=== PATIENT | female | born 1980 | race Caucasian/White ===

== ENCOUNTER 2022-03-27 17:18 | Emergency (ER) | payer MEDICAID, SELFPAY ==
--- NOTE | ~2022-03-27 | CT_ITS ---
CT HEAD WITHOUT CONTRAST CLINICAL HISTORY: Headache TECHNIQUE: CT of the brain was performed from the skull base through the vertex using a routine non-contrast protocol. All CT exams at this location are performed using dose optimization techniques as appropriate to a performed exam including at least one of the following: * Automated exposure control * Adjustment of the mA and/or kV according to patient size (this includes techniques or standardized protocols for targeted exams where dose is matched to indication / reason for exam; i/e/ extremities or head) * Use of iterative reconstructive technique DLP: 630 mGy-cm COMPARISON: None. RESULTS: There is no evidence of acute intracranial hemorrhage, acute large vessel infarct, midline shift or mass effect. The tate-white differentiation is preserved. The ventricles and sulci are within normal limits in size and configuration. There is no evidence of hydrocephalus. There are no extraaxial collections. Osseous structures are intact. Paranasal sinuses and mastoid air cells are well aerated. CT/CT head/brain wo IV con IMPRESSION: Unremarkable non-contrast CT of the brain.
--- NOTE | ~2022-03-27 | XR_ITS ---
EXAMINATION: XR CHEST CLINICAL INFORMATION: Chest pain COMPARISON: None TECHNIQUE: Frontal view of the chest was obtained. FINDINGS: Minimal streaky linear probable subsegmental atelectasis in the peripheral left lung base. No airspace consolidation. No pleural effusion or pneumothorax. Normal cardiomediastinal silhouette and pulmonary vascularity. No evidence pulmonary edema. No acute osseous injury identified. XR/XR chest 1V IMPRESSION: No acute pulmonary process.
[2022-03-27 17:26] VITALS: BP 100/64; BP 102/71; PULSE 68; PULSE 74; RESP 18; TEMP 37.7; O2SAT 98; O2SAT 99; BMI 24.2
--- NOTE | 2022-03-27 18:15 | ECG_ITS ---
Test Reason : HYPOTENSION Blood Pressure : / mmHG Vent. Rate : 069 BPM Atrial Rate : 069 BPM P-R Int : 190 ms QRS Dur : 100 ms QT Int : 426 ms P-R-T Axes : 040 040 040 degrees QTc Int : 456 ms Normal sinus rhythm Normal ECG No previous ECGs available Referred By: Spencer Matos Electronically Signed By:MANAN MAX MD
--- NOTE | 2022-03-27 18:16 | ED.GENADULT ---
HPI - General Adult General Chief complaint: Weakness Stated complaint: WEAKNESS Time Seen by Provider: 03/27/22 17:53 Source: patient and EMS Mode of arrival: EMS Limitations: other (patient not cooperative poor historian ) History of Present Illness HPI narrative: 42-year-old female presenting to the emergency department via ambulance from [facility] on a section 21 , according to EMS patient is here because [facility]a Fine got 1 low blood pressure reading while she was there and they forced her to come into the emergency department. Patient tells me she does understand why she is here. When I ask her if she has any medical complaints she tells me her head hurts she feels ?foggy she tells me she is having tingling throughout her entire body. She tells me that her legs have been swollen for months, she tells me both of them. Patient also reporting chest pain however unwilling to specify where it hurts or what makes it better or worse. Patient tells me all my questions are annoying her. She tells me she wants to go back to [facility] not get any medical treatment. Patient with a erratic behavior, unpredictable mood and affect. Related Data Home Medications Medication Instructions Recorded Confirmed amitriptyline 50 mg tablet 50 mg PO BEDTIME 03/27/22 03/27/22 baclofen 10 mg tablet 10 mg PO BID 03/27/22 03/27/22 cholecalciferol (vitamin D3) 25 25 mcg PO DAILY 03/27/22 03/27/22 mcg (1,000 unit) tablet diphenhydramine HCl 50 mg capsule 50 mg PO BEDTIME 03/27/22 03/27/22 fenofibrate micronized 134 mg 134 mg PO BEDTIME 03/27/22 03/27/22 capsule furosemide 20 mg tablet 20 mg PO DAILY 03/27/22 03/27/22 gabapentin 300 mg capsule 300 mg PO TID 03/27/22 03/27/22 lactulose 20 gram/30 mL oral 20 g PO TID 03/27/22 03/27/22 solution lidocaine 5 % topical patch 1 patch topical DAILY 03/27/22 03/27/22 (Lidoderm) losartan 50 mg tablet 50 mg PO DAILY 03/27/22 03/27/22 naproxen 250 mg tablet 250 mg PO BID 03/27/22 03/27/22 nicotine 14 mg/24 hr daily 1 patch transdermal DAILY 03/27/22 03/27/22 transdermal patch propranolol 10 mg tablet 10 mg PO TID 03/27/22 03/27/22 quetiapine 100 mg tablet 100 mg PO BID@1300,1700 03/27/22 03/27/22 quetiapine 100 mg tablet (Seroquel) 200 mg PO BEDTIME 03/27/22 03/27/22 valacyclovir 1 gram tablet 1,000 mg PO DAILY 03/27/22 03/27/22 verapamil 360 mg 24 hr 360 mg PO DAILY 03/27/22 03/27/22 capsule,extended release Allergies Allergy/AdvReac Type Severity Reaction Status Date / Time adhesive tape Allergy Unknown Verified 03/27/22 17:37 lisinopril Allergy Cough Verified 03/27/22 17:38 morphine Allergy Vomiting Verified 03/27/22 17:37 Penicillins [PCN] Allergy Rash Verified 03/27/22 17:37 Review of Systems Review of Systems: Yes Other (Patient refusing to answer all my questions ) [facility] Past Medical History Attestation statement: The following information was validated with the patient. Source: old records reviewed and nursing notes reviewed Social History Social History Alcohol intake: former Smoked in Last 30 Days: Yes Use of substances other than those prescribed or required for medical reasons: No Substance Use Type: Crack/Cocaine Any prior treatment program specific to substance use: Yes Advance Directives: No Advance Directives Information Provided: No Physical Exam ED Vital Signs: Vital Signs - 24 hr 03/27/22 17:26 03/27/22 18:37 03/27/22 19:47 Temperature 99.9 F 97.4 F 97.9 F Pulse Rate 68 70 68 Respiratory Rate 18 16 16 Blood Pressure 102/71 118/85 123/83 Pulse Oximetry 99 100 97 Oxygen Delivery Method Room Air Room Air Room Air 03/27/22 21:11 Temperature 97.8 F Pulse Rate 70 Respiratory Rate 16 Blood Pressure 126/92 H Pulse Oximetry 100 Oxygen Delivery Method Room Air BMI result Body Mass Index 24.2 vss Appearance: Alert.? Oriented X3.? No acute distress.? Patient with erratic behavior and unpredictable mood/affect. Head: Normocephalic, atraumatic, no step-offs or deformities Eyes: Pupils equal, round and reactive to light.? ENT: Pharynx normal.? Neck: Normal inspection.? Neck supple.? CVS: Normal heart rate and rhythm.? Pulses normal.? Respiratory: No respiratory distress.? Breath sounds normal.? Abdomen: Soft and nontender.? Skin: Skin warm and dry.? Normal skin color.? Normal skin turgor.? Extremities: No lower extremity edema b/l.? No calf ttp, negative chris. 5/5 strength to bilateral upper and lower extremities Neuro: Oriented X 3.? No motor deficit.? No sensory deficit. CN 2-12 intact . Patient ambulating with steady gait normal coordination. Normal [id number]. Course Reevaluation(s) Reevaluation #1: Patient's CBC within normal limits. Chemistry with no acute findings requiring intervention. Normal troponin, EKG nonischemic unlikely ACS. BNP within normal limits, unlikely CHF. D-dimer negative. Unlikely PE or DVT. Patient negative for COVID however flu/COVID/RSV pending. Chest x-ray with no acute pulmonary process noted. UA without infection. Pending CT of the head. Time: 20:37 Reevaluation #2: Viral panel negative. Head CT negative. Patient given her home medications. At this time patient without complaints. [facility] Educated patient on diagnosis and treatment plan, answered all question, patient verbalizes understanding. At this time patient will be discharged home, advised to return with new or worsening symptoms. Educated on worrisome signs and symptoms and when to return. At this time I feel comfortable discharge home. Time: 22:42 Medications Administered Generic Name Dose Route Start Last Admin Trade Name Raoul PRN Reason Stop Dose Admin Amitriptyline HCl 50 mg 03/28/22 21:00 03/27/22 22:30 Amitriptyline Hcl 50 Mg Tablet PO 50 mg BEDTIME AYO Administration Baclofen 10 mg 03/28/22 09:00 03/27/22 22:31 Baclofen 10 Mg Tablet PO 10 mg BID AYO Administration Diphenhydramine HCl 50 mg 03/28/22 21:00 03/27/22 22:31 Diphenhydramine Hcl 25 Mg Capsule PO 50 mg BEDTIME AYO Administration Fenofibrate 134 mg 03/28/22 21:00 12/28/22 22:29 Fenofibrate,Micronized 134 Mg Capsule PO 134 mg BEDTIME AYO Administration Gabapentin 300 mg 03/28/22 09:00 03/27/22 22:30 Gabapentin 300 Mg Capsule PO 300 mg TID AYO Administration Lactulose 20 gm 03/28/22 09:00 03/27/22 22:30 Lactulose 20 Gm/30 Ml Solution PO 20 gm TID AYO Administration Naproxen 250 mg 03/28/22 09:00 03/27/22 22:30 Naproxen 250 Mg Tablet PO 250 mg BID AYO Administration Propranolol HCl 10 mg 03/28/22 09:00 03/27/22 22:30 Propranolol Hcl 10 Mg Tablet PO 10 mg TID AYO Administration Protocol Quetiapine Fumarate 200 mg 03/28/22 21:00 03/27/22 22:30 Quetiapine Fumarate 200 Mg Tablet PO 200 mg BEDTIME AYO Administration Discontinued Medications Generic Name Dose Route Start Last Admin Trade Name Freq PRN Reason Stop Dose Admin Ketorolac Tromethamine 30 mg 03/27/22 18:21 03/27/22 18:58 Ketorolac Tromethamine 30 Mg/Ml Vial IM 03/27/22 18:22 30 mg ONCE ONE Administration Medical Decision Making Medical Decision Making [facility] Narrative: 1805 42-year-old female presents on a Section 21 for [facility] complaining of chest pain, lower extremity swelling, poor historian. Unwilling to participate in history, physical exam, review of systems. Physical examination benign. Neuro nonfocal. Patient ambulating with steady gait normal coordination. GCS of 15, NIH stroke scale 0. Plan at this time medical clearance and discharged back to [facility]. Patient's blood pressure here soft however patient tells me her blood pressure is always low. Lab Data Result Diagrams: 03/27/22 18:57 03/27/22 18:58 Labs: Lab Results 03/27/22 03/27/22 03/27/22 Range/Units 18:57 18:57 18:57 WBC 8.1 (4.8-10.8) X10*3/uL RBC 3.62 L (4.20-5.50) X10*6/uL Hgb 11.4 L (12.0-16.0) g/dl Hct 33.9 L (37.0-47.0) % MCV 93.6 (80.0-98.0) fL MCH 31.5 (27.0-33.0) pg MCHC 33.6 (31.0-35.0) g/dl RDW 12.3 (11.0-16.0) % Plt Count 300 (160-400) X10*3/uL MPV 9.9 (9.4-12.3) fL Immature Gran % (Auto) 0.4 (0.0-0.4) % Neut % (Auto) 45.2 (45-73) % Lymph % (Auto) 37.6 (20-40) % [place] % (Auto) 11.3 H (2-11) % Eos % (Auto) 4.3 H (0-4) % Baso % (Auto) 1.2 (0-2) % Lymph # (Auto) 3.1 (1.2-4.9) X10*3/uL [place] # (Auto) 0.9 (0.1-1.2) X10*3/uL Eos # (Auto) 0.4 (0.0-0.4) X10*3/uL Baso # (Auto) 0.1 (0.0-0.2) X10*3/uL Abs Immat Gran (auto) 0.03 (0.00-0.03) X10*3/uL Absolute Neuts (auto) 3.7 (2.0-8.3) x10*3/uL Absolute Nucleated RBC 0.000 (0.0-0.012) X10*3/uL Nucleated RBC % (auto) 0.0 (0.0-0.2) /100WBC D-Dimer High Sensitivty 207 NG/ML Sodium (135-145) mmol/L Potassium (3.3-5.1) mmol/L Chloride (96-108) mmol/L Carbon Dioxide (22-29) mmol/L Anion Gap (12-20) BUN (9-16) mg/dL Creatinine (0.5-1.4) mg/dL Estim Creat Clear Calc Estimated GFR Random Glucose (60-115) mg/dL Calcium (8.4-10.2) mg/dL Magnesium (1.6-2.6) mg/dL Total Bilirubin (0.0-1.0) mg/dL AST (5-31) U/L ALT (0-31) U/L Alkaline Phosphatase (39-117) U/L Troponin I High Sens (<3.5-17.0) ng/L B-Natriuretic Peptide 38 (<100) pg/mL Total Protein (6.5-8.0) g/dL Albumin (3.5-5.0) g/dL Urine Color Urine Appearance Urine pH (5.0-9.0) Ur Specific [place] (1.005-1.025) Urine Protein (Neg-Trace) mg/dL Urine Glucose (UA) (Negative) mg/dL Urine Ketones (Negative) mg/dL Urine Blood (Negative) Urine Nitrite (Negative) Ur Leukocyte Esterase (Negative) COVID-19 ([facility]) (Negative) COVID-19 Clin Com Influenza Type A (PCR) (Negative) Influenza Type B (PCR) (Negative) RSV RNA Qual (PCR) (Negative) SARS-CoV-2 RNA (RT-PCR) (Negative) 03/27/22 03/27/22 03/27/22 Range/Units 18:57 18:57 18:57 WBC (4.8-10.8) X10*3/uL RBC (4.20-5.50) X10*6/uL Hgb (12.0-16.0) g/dl Hct (37.0-47.0) % MCV (80.0-98.0) fL MCH (27.0-33.0) pg MCHC (31.0-35.0) g/dl RDW (11.0-16.0) % Plt Count (160-400) X10*3/uL MPV (9.4-12.3) fL Immature Gran % (Auto) (0.0-0.4) % Neut % (Auto) (45-73) % Lymph % (Auto) (20-40) % [place] % (Auto) (2-11) % Eos % (Auto) (0-4) % Baso % (Auto) (0-2) % Lymph # (Auto) (1.2-4.9) X10*3/uL [place] # (Auto) (0.1-1.2) X10*3/uL Eos # (Auto) (0.0-0.4) X10*3/uL Baso # (Auto) (0.0-0.2) X10*3/uL Abs Immat Gran (auto) (0.00-0.03) X10*3/uL Absolute Neuts (auto) (2.0-8.3) x10*3/uL Absolute Nucleated RBC (0.0-0.012) X10*3/uL Nucleated RBC % (auto) (0.0-0.2) /100WBC D-Dimer High Sensitivty NG/ML Sodium (135-145) mmol/L Potassium (3.3-5.1) mmol/L Chloride (96-108) mmol/L Carbon Dioxide (22-29) mmol/L Anion Gap (12-20) BUN (9-16) mg/dL Creatinine (0.5-1.4) mg/dL Estim Creat Clear Calc Estimated GFR Random Glucose (60-115) mg/dL Calcium (8.4-10.2) mg/dL Magnesium (1.6-2.6) mg/dL Total Bilirubin (0.0-1.0) mg/dL AST (5-31) U/L ALT (0-31) U/L Alkaline Phosphatase (39-117) U/L Troponin I High Sens < 3.5 (<3.5-17.0) ng/L B-Natriuretic Peptide (<100) pg/mL Total Protein (6.5-8.0) g/dL Albumin (3.5-5.0) g/dL Urine Color Urine Appearance Urine pH (5.0-9.0) Ur Specific [place] (1.005-1.025) Urine Protein (Neg-Trace) mg/dL Urine Glucose (UA) (Negative) mg/dL Urine Ketones (Negative) mg/dL Urine Blood (Negative) Urine Nitrite (Negative) Ur Leukocyte Esterase (Negative) COVID-19 ([facility]) Negative (Negative) COVID-19 Clin Com See Note Influenza Type A (PCR) NEGATIVE (Negative) Influenza Type B (PCR) NEGATIVE (Negative) RSV RNA Qual (PCR) NEGATIVE (Negative) SARS-CoV-2 RNA (RT-PCR) NEGATIVE (Negative) 03/27/22 03/27/22 03/27/22 Range/Units 18:58 19:49 21:21 WBC (4.8-10.8) X10*3/uL RBC (4.20-5.50) X10*6/uL Hgb (12.0-16.0) g/dl Hct (37.0-47.0) % MCV (80.0-98.0) fL MCH (27.0-33.0) pg MCHC (31.0-35.0) g/dl RDW (11.0-16.0) % Plt Count (160-400) X10*3/uL MPV (9.4-12.3) fL Immature Gran % (Auto) (0.0-0.4) % Neut % (Auto) (45-73) % Lymph % (Auto) (20-40) % [place] % (Auto) (2-11) % Eos % (Auto) (0-4) % Baso % (Auto) (0-2) % Lymph # (Auto) (1.2-4.9) X10*3/uL [place] # (Auto) (0.1-1.2) X10*3/uL Eos # (Auto) (0.0-0.4) X10*3/uL Baso # (Auto) (0.0-0.2) X10*3/uL Abs Immat Gran (auto) (0.00-0.03) X10*3/uL Absolute Neuts (auto) (2.0-8.3) x10*3/uL Absolute Nucleated RBC (0.0-0.012) X10*3/uL Nucleated RBC % (auto) (0.0-0.2) /100WBC D-Dimer High Sensitivty NG/ML Sodium 139 (135-145) mmol/L Potassium 3.9 (3.3-5.1) mmol/L Chloride 106 (96-108) mmol/L Carbon Dioxide 25 (22-29) mmol/L Anion Gap 12 (12-20) BUN 7 L (9-16) mg/dL Creatinine 0.83 (0.5-1.4) mg/dL Estim Creat Clear Calc 80.9 Estimated GFR > 60 Random Glucose 89 (60-115) mg/dL Calcium 9.3 (8.4-10.2) mg/dL Magnesium 1.8 (1.6-2.6) mg/dL Total Bilirubin 0.2 (0.0-1.0) mg/dL AST 12 (5-31) U/L ALT 14 (0-31) U/L Alkaline Phosphatase 61 (39-117) U/L Troponin I High Sens < 3.5 (<3.5-17.0) ng/L B-Natriuretic Peptide (<100) pg/mL Total Protein 6.2 L (6.5-8.0) g/dL Albumin 3.9 (3.5-5.0) g/dL Urine Color Yellow Urine Appearance Clear Urine pH 7.5 (5.0-9.0) Ur Specific [place] <= 1.005 (1.005-1.025) Urine Protein Negative (Neg-Trace) mg/dL Urine Glucose (UA) Negative (Negative) mg/dL Urine Ketones Negative (Negative) mg/dL Urine Blood Negative (Negative) Urine Nitrite Negative (Negative) Ur Leukocyte Esterase Negative (Negative) COVID-19 ([facility]) (Negative) COVID-19 Clin Com Influenza Type A (PCR) (Negative) Influenza Type B (PCR) (Negative) RSV RNA Qual (PCR) (Negative) SARS-CoV-2 RNA (RT-PCR) (Negative) Critical Care Time Critical Care Time Critical Care Time: No Discharge Plan Discharge Clinical Impression: Headache, Chest pain Patient Disposition: Xfer Other Transfer Details: Back to [facility] on a 21 Take your medications as prescribed. If you were prescribed antibiotics today, it is important that you take your medication to their entirety, do not skip any doses, do not finish them early. Follow-up with your primary care provider this week. Return to the emergency department with new or worsening symptoms. Such as fevers, chills, chest pain, shortness of breath, nausea, vomiting, dizziness, headache, vision changes, lethargy In case of emergency call 911 Patient was given her night medications here. Instructions: Chest Pain (ED), General Headache (ED) Additional Instructions: Take your medications as prescribed. If you were prescribed antibiotics today, it is important that you take your medication to their entirety, do not skip any doses, do not finish them early. Follow-up with your primary care provider this week. Return to the emergency department with new or worsening symptoms. Such as fevers, chills, chest pain, shortness of breath, nausea, vomiting, dizziness, headache, vision changes, lethargy In case of emergency call 911 You can take ibuprofen every 6 hours, Tylenol every 4 as needed for headache, fevers, chills, pain. Prescriptions: No Action baclofen 10 mg Tablet 10 mg PO BID cholecalciferol (vitamin D3) 25 mcg (1,000 unit) Tablet 25 mcg PO DAILY losartan 50 mg Tablet 50 mg PO DAILY nicotine [Nicoderm] 14 mg/24 hr Patch 24 Hour 1 patch TRANSDERMAL DAILY diphenhydramine HCl [Benadryl] 50 mg Capsule 50 mg PO BEDTIME verapamil 360 mg Capsule,Ext Rel. Pellets 24 Hr 360 mg PO DAILY valacyclovir 1 gram Tablet 1,000 mg PO DAILY naproxen 250 mg Tablet 250 mg PO BID quetiapine 100 mg Tablet 100 mg PO BID@1300,1700 quetiapine [Seroquel] 100 mg Tablet 200 mg PO BEDTIME amitriptyline 50 mg Tablet 50 mg PO BEDTIME fenofibrate micronized 134 mg Capsule 134 mg PO BEDTIME propranolol 10 mg Tablet 10 mg PO TID lidocaine [Lidoderm] 5 % Adhesive Patch,Medicated 1 patch TOPICAL DAILY Rx Instructions: leave on most painful area for up to 12 hrs gabapentin 300 mg Capsule 300 mg PO TID furosemide 20 mg Tablet 20 mg PO DAILY lactulose 20 gram/30 mL Solution 20 g PO TID Referrals: [facility] Cardiovascular Services [Provider Group] - 2 weeks Physician,None [Primary Care Provider] - 2 days
[2022-03-27 18:37] VITALS: BP 118/85; PULSE 70; RESP 16; TEMP 36.3; O2SAT 100
[2022-03-27] MEDS: Ketorolac Tromethamine 30 MG/ML VIAL IM (18:58)
[2022-03-27 19:02] LABS: MANUAL DIFF FLAG NO
[2022-03-27 19:03] LABS: Basophils Absolute Auto 0.1 X10*3/uL (0.0-0.2); Basophils Percent Auto 1.2 % (0-2); Eosinophils Absolute Auto 0.4 X10*3/uL (0.0-0.4); Eosinophils Percent Auto 4.3 % (0-4); Hematocrit 33.9 % (37.0-47.0); Hemoglobin 11.4 g/dl (12.0-16.0); Imm Gran Abs Auto 0.03 X10*3/uL (0.00-0.03); Imm Gran Pct Auto 0.4 % (0.0-0.4); Lymphocytes Absolute Auto 3.1 X10*3/uL (1.2-4.9); Lymphocytes Percent Auto 37.6 % (20-40); Mean Corpuscular HGB Conc 33.6 g/dl (31.0-35.0); Mean Corpuscular Hemoglobin 31.5 pg (27.0-33.0); Mean Corpuscular Volume 93.6 fL (80.0-98.0); Mean Platelet Volume 9.9 fL (9.4-12.3); Monocytes Absolute Auto 0.9 X10*3/uL (0.1-1.2); Monocytes Percent Auto 11.3 % (2-11); Neutrophils Absolute Auto 3.7 x10*3/uL (2.0-8.3); Neutrophils Percent Auto 45.2 % (45-73); Platelet Count 300 X10*3/uL (160-400); Red Blood Count 3.62 X10*6/uL (4.20-5.50); Red Cell Distribution Width 12.3 % (11.0-16.0); White Blood Count 8.1 X10*3/uL (4.8-10.8)
[2022-03-27 19:11] LABS: D Dimer High Sensitivity 207 NG/ML
[2022-03-27 19:17] LABS: COVID-19 Test Negative (Negative); IDNOW Serial# 16C4AD1C
[2022-03-27 19:27] LABS: Alanine Aminotransferase 14 U/L (0-31); Albumin Level 3.9 g/dL (3.5-5.0); Alkaline Phosphatase 61 U/L (39-117); Anion Gap 12 (12-20); Aspartate Amino Transferase 12 U/L (5-31); Bilirubin Total 0.2 mg/dL (0.0-1.0); Blood Urea Nitrogen 7 mg/dL (9-16); Calcium 9.3 mg/dL (8.4-10.2); Carbon Dioxide 25 mmol/L (22-29); Chloride 106 mmol/L (96-108); Creatinine Clr Calc Pharmacy 80.9; Estimated Glomerular Filt Rate > 60; Glucose Random 89 mg/dL (60-115); Magnesium 1.8 mg/dL (1.6-2.6); Potassium 3.9 mmol/L (3.3-5.1); Sodium 139 mmol/L (135-145); Total Protein 6.2 g/dL (6.5-8.0)
[2022-03-27 19:34] LABS: B Type Natriuretic Peptide 38 pg/mL (<100)
[2022-03-27 19:39] LABS: Troponin-I High Sensitivity < 3.5 ng/L (<3.5-17.0)
[2022-03-27 19:44] LABS: Influenza A PCR NEGATIVE (Negative); Influenza B PCR NEGATIVE (Negative); Resp Syncy Virus RNA Qual PCR NEGATIVE (Negative); SARS COV2 PCR INHOUSE NEGATIVE (Negative)
[2022-03-27 19:47] VITALS: BP 123/83; PULSE 68; RESP 16; TEMP 36.6; O2SAT 97
--- NOTE | 2022-03-27 19:49 | MHC.EDTECH ---
pt got change lead into hospital attire by this pct, warm blanket given .
[2022-03-27 20:21] LABS: Appearance Urine Clear; Color Urine Yellow; Glucose Urine UA Negative (Negative); Leukocyte Esterase Urine Negative (Negative); Nitrite Urine Negative (Negative); PH 7.5 (5.0-9.0); Specific Gravity - Urine <= 1.005 (1.005-1.025); Urine Blood Negative (Negative); Urine Ketones Negative (Negative); Urine Protein Negative (Neg-Trace)
[2022-03-27 21:11] VITALS: BP 126/92; PULSE 70; RESP 16; TEMP 36.6; O2SAT 100
[2022-03-27 21:48] LABS: Troponin-I High Sensitivity < 3.5 ng/L (<3.5-17.0)
[2022-03-27] MEDS: Fenofibrate,Micronized 134 MG CAPSULE PO (22:29)
[2022-03-27] MEDS: Lactulose 20 GM/30 ML SOLUTION PO (22:30)
[2022-03-27] MEDS: Propranolol HCL 10 MG TABLET PO (22:30)
[2022-03-27] MEDS: Gabapentin 300 MG CAPSULE PO (22:30)
[2022-03-27] MEDS: QUEtiapine Fumarate 200 MG TABLET PO (22:30)
[2022-03-27] MEDS: NaPROXEN 250 MG TABLET PO (22:30)
[2022-03-27] MEDS: Amitriptyline HCl 50 MG TABLET PO (22:30)
[2022-03-27] MEDS: diphenhydrAMINE HCL 25 MG CAPSULE 50 MG PO (22:31)
[2022-03-27] MEDS: Baclofen 10 MG TABLET PO (22:31)
--- NOTE | 2022-03-27 22:42 | MHC.EDTECH ---
Prasanth called at 2242 for a bls transfer back to [facility] per Mohini Barone aware
--- NOTE | 2022-03-27 22:56 | PC.NURSE ---
Called and gave report to Gerard at [facility] ct scan negative, blood pressures wnl the entire time she was here. Ambulance on its way to pick her up.
== END 2022-03-27 23:44 | disposition other institution (70) ==
PROVIDERS: Physician Assistant; Emergency Provider Emergency Medicine
DX: R07.89 Other chest pain (principal); R06.02 Shortness of breath; R51.9 Headache, unspecified; Z20.822 Contact with and (suspected) exposure to COVID-19; Z79.899 Other long term (current) drug therapy
CPT/HCPCS: 0241U; 36415; 70450; 71045; 80053; 81003; 83735; 83880; 84484; 85025; 85379; 87635; 93005; 99285; J1885

== ENCOUNTER 2022-03-30 23:27 | Emergency (ER) | payer MEDICAID, SELFPAY ==
--- NOTE | ~2022-03-30 | CT_ITS ---
EXAMINATION: CT HEAD WITHOUT CONTRAST CLINICAL INFORMATION: New onset seizure. Fall. COMPARISON: 03/27/2022. TECHNIQUE: Contiguous axial imaging was performed from the skull base to vertex without intravenous administration of contrast. This CT examination was performed using dose optimization techniques as appropriate, variously including the following: *Automated exposure control *Adjustment of mA and/or kV according to patient size (this includes techniques or standardized protocols for targeted exams where dose is matched to indication/reason for exam; i.e. extremities or head) *Use of iterative reconstruction technique DLP: 584 mGy-cm FINDINGS: There is no evidence of acute intracranial hemorrhage or territorial infarction. No abnormal mass effect or midline shift is seen. [place] to white matter differentiation is well preserved. No extra-axial fluid collections are identified. No hydrocephalus. No significant volume loss. Stable hyperdense focus in the left parietal subcortical white matter No acute osseous or soft tissue abnormality. The mastoid air cells and visualized portions of the paranasal sinuses are well aerated. CT/CT head/brain wo IV con IMPRESSION: * No acute intracranial pathology. * Stable hypodense focus in the left parietal subcortical white matter. Given the unchanged size and morphology from the prior examination, favor mineralization. There are myriad etiologies for brain parenchymal calcification. With a history of new onset seizures, however, MRI brain without and with contrast is indicated for further evaluation.
[2022-03-30 23:49] VITALS: BP 157/105; PULSE 101; RESP 16; TEMP 36.8; O2SAT 97; BMI 23.3
--- NOTE | 2022-03-30 23:53 | ED_ITS ---
HPI - Seizure General Chief Complaint: Seizure Stated Complaint: SZ,POST ICTAL @ [facility] VERSED GIVEN Time Seen by Provider: 03/30/22 23:44 Source: EMS and RN notes reviewed Mode of arrival: EMS Limitations: altered mental status History of Present Illness HPI Narrative: Patient is 42 years old with history of recurrent MDD, substance induced mood disorder history of cocaine abuse and SI and anxiety just admitted to [facility] psych for SI on 03/18 was seen here on 03/27 for been feeling foggy CT scan of the head and lab workup was negative her blood pressure medication losartan and verapamil was on hold because of her blood pressure on the lower side SBP in 110 range since discharge patient on 03/27 from the ER here a blood pressure on the higher side on arrival blood pressure today was 157/105. Prior to arrival patient went to the nursing station asking for medication to sleep a nd then while the staff talking to her today she became unresponsive with eyes up rolling leaning forward slumped down with having seizure-like activity lasted for 5-6 minutes post seizure-like activity patient was agitated completed with chart patient never had seizure. Patient was given 2 mg of Versed prior to arrival by EMS Related Data Home Medications Medication Instructions Recorded Confirmed amitriptyline 50 mg tablet 50 mg PO BEDTIME 03/27/22 03/27/22 baclofen 10 mg tablet 10 mg PO BID 03/27/22 03/27/22 cholecalciferol (vitamin D3) 25 25 mcg PO DAILY 03/27/22 03/27/22 mcg (1,000 unit) tablet diphenhydramine HCl 50 mg capsule 50 mg PO BEDTIME 03/27/22 03/27/22 fenofibrate micronized 134 mg 134 mg PO BEDTIME 03/27/22 03/27/22 capsule furosemide 20 mg tablet 20 mg PO DAILY 03/27/22 03/27/22 gabapentin 300 mg capsule 300 mg PO TID 03/27/22 03/27/22 lactulose 20 gram/30 mL oral 20 g PO TID 03/27/22 03/27/22 solution lidocaine 5 % topical patch 1 patch topical DAILY 03/27/22 03/27/22 (Lidoderm) losartan 50 mg tablet 50 mg PO DAILY 03/27/22 03/27/22 naproxen 250 mg tablet 250 mg PO BID 03/27/22 03/27/22 nicotine 14 mg/24 hr daily 1 patch transdermal DAILY 03/27/22 03/27/22 transdermal patch propranolol 10 mg tablet 10 mg PO TID 03/27/22 03/27/22 quetiapine 100 mg tablet 100 mg PO BID@1300,1700 03/27/22 03/27/22 quetiapine 100 mg tablet (Seroquel) 200 mg PO BEDTIME 03/27/22 03/27/22 valacyclovir 1 gram tablet 1,000 mg PO DAILY 03/27/22 03/27/22 verapamil 360 mg 24 hr 360 mg PO DAILY 03/27/22 03/27/22 capsule,extended release Allergies Allergy/AdvReac Type Severity Reaction Status Date / Time adhesive tape Allergy Unknown Verified 03/27/22 17:37 lisinopril Allergy Cough Verified 03/27/22 17:38 morphine Allergy Vomiting Verified 03/27/22 17:37 Penicillins [PCN] Allergy Rash Verified 03/27/22 17:37 Review of Systems Review of Systems: Yes Unobtainable due to mental status [facility] Social History Social History Alcohol intake: former Substance Use Type: Crack/Cocaine Physical Exam Vital Signs: Vital Signs: Last Vital Signs Temp 98.3 F 03/30/22 23:49 Pulse 94 03/31/22 00:25 Resp 16 03/31/22 00:25 BP 127/85 03/31/22 00:25 Pulse Ox 95 03/31/22 00:25 O2 Del Method 03/31/22 00:25 BMI result Body Mass Index 23.3 Appearance: Lethargic sleepy No acute distress. Eyes: PERRL ENT: Pharynx normal. Oral Mucosa moist dried blood in left nostril Neck: Normal inspection. Neck supple. CVS: Normal heart rate and rhythm. Pulses normal. Respiratory: No respiratory distress. Equal air entry bilateral, Abdomen: Soft and nontender. Bowel sounds are present, Skin: Skin warm and dry. Normal skin color. Normal skin turgor. Extremities: No lower extremity edema. No calf tenderness Neuro: Lethargic sleepy Medical Decision Making Medical Decision Making MDM Narrative: 0032Patient with questionable seizure activity blood pressure on arrival was 157/105 repeat blood pressure 127/85 no tongue bite dried nasal blood will get head CT to rule out SAH patient is still confused able to ambulate in the ER Patient's CT scan is negative for acute patient is on gabapentin continue for possible epilepsy questionable pseudoseizures patient ambulatory in ED , alert and awake but does not remember the event Lab Data MDM Lab Attestation statement: I reviewed the patient's lab results. Result Diagrams: 03/31/22 00:27 03/31/22 00:27 Labs: Lab Results 03/31/22 03/31/22 03/31/22 Range/Units 00:27 00:27 00:34 WBC 9.7 (4.8-10.8) X10*3/uL RBC 3.58 L (4.20-5.50) X10*6/uL Hgb 11.3 L (12.0-16.0) g/dl Hct 33.3 L (37.0-47.0) % MCV 93.0 (80.0-98.0) fL MCH 31.6 (27.0-33.0) pg MCHC 33.9 (31.0-35.0) g/dl RDW 12.1 (11.0-16.0) % Plt Count 292 (160-400) X10*3/uL MPV 9.6 (9.4-12.3) fL Immature Gran % (Auto) 0.6 H (0.0-0.4) % Neut % (Auto) 59.0 (45-73) % Lymph % (Auto) 24.1 (20-40) % [place] % (Auto) 11.9 H (2-11) % Eos % (Auto) 3.2 (0-4) % Baso % (Auto) 1.2 (0-2) % Lymph # (Auto) 2.3 (1.2-4.9) X10*3/uL [place] # (Auto) 1.2 (0.1-1.2) X10*3/uL Eos # (Auto) 0.3 (0.0-0.4) X10*3/uL Baso # (Auto) 0.1 (0.0-0.2) X10*3/uL Abs Immat Gran (auto) 0.06 H (0.00-0.03) X10*3/uL Absolute Neuts (auto) 5.7 (2.0-8.3) x10*3/uL Absolute Nucleated RBC 0.000 (0.0-0.012) X10*3/uL Nucleated RBC % (auto) 0.0 (0.0-0.2) /100WBC Sodium 136 (135-145) mmol/L Potassium 4.1 (3.3-5.1) mmol/L Chloride 103 (96-108) mmol/L Carbon Dioxide 24 (22-29) mmol/L Anion Gap 13 (12-20) BUN 9 (9-16) mg/dL Creatinine 0.75 (0.5-1.4) mg/dL Estim Creat Clear Calc 89.6 Estimated GFR > 60 Random Glucose 94 (60-115) mg/dL Calcium 9.2 (8.4-10.2) mg/dL Total Bilirubin 0.2 (0.0-1.0) mg/dL AST 16 (5-31) U/L ALT 13 (0-31) U/L Alkaline Phosphatase 69 (39-117) U/L Total Protein 6.4 L (6.5-8.0) g/dL Albumin 4.0 (3.5-5.0) g/dL Urine Color Urine Appearance Urine pH (5.0-9.0) Ur Specific [place] (1.005-1.025) Urine Protein (Neg-Trace) mg/dL Urine Glucose (UA) (Negative) mg/dL Urine Ketones (Negative) mg/dL Urine Blood (Negative) Urine Nitrite (Negative) Ur Leukocyte Esterase (Negative) Urine Opiates Screen Not Detected (Not Detect) Urine Fentanyl Screen Not Detected (Not Detect) Ur Barbiturates Screen Not Detected (Not Detect) Ur Phencyclidine Scrn Not Detected (Not Detect) Ur Amphetamines Screen Not Detected (Not Detect) U Benzodiazepines Scrn POSITIVE H (Not Detect) Urine Cocaine Screen POSITIVE H (Not Detect) U Marijuana (THC) Screen POSITIVE H (Not Detect) 03/31/22 Range/Units 00:35 WBC (4.8-10.8) X10*3/uL RBC (4.20-5.50) X10*6/uL Hgb (12.0-16.0) g/dl Hct (37.0-47.0) % MCV (80.0-98.0) fL MCH (27.0-33.0) pg MCHC (31.0-35.0) g/dl RDW (11.0-16.0) % Plt Count (160-400) X10*3/uL MPV (9.4-12.3) fL Immature Gran % (Auto) (0.0-0.4) % Neut % (Auto) (45-73) % Lymph % (Auto) (20-40) % [place] % (Auto) (2-11) % Eos % (Auto) (0-4) % Baso % (Auto) (0-2) % Lymph # (Auto) (1.2-4.9) X10*3/uL [place] # (Auto) (0.1-1.2) X10*3/uL Eos # (Auto) (0.0-0.4) X10*3/uL Baso # (Auto) (0.0-0.2) X10*3/uL Abs Immat Gran (auto) (0.00-0.03) X10*3/uL Absolute Neuts (auto) (2.0-8.3) x10*3/uL Absolute Nucleated RBC (0.0-0.012) X10*3/uL Nucleated RBC % (auto) (0.0-0.2) /100WBC Sodium (135-145) mmol/L Potassium (3.3-5.1) mmol/L Chloride (96-108) mmol/L Carbon Dioxide (22-29) mmol/L Anion Gap (12-20) BUN (9-16) mg/dL Creatinine (0.5-1.4) mg/dL Estim Creat Clear Calc Estimated GFR Random Glucose (60-115) mg/dL Calcium (8.4-10.2) mg/dL Total Bilirubin (0.0-1.0) mg/dL AST (5-31) U/L ALT (0-31) U/L Alkaline Phosphatase (39-117) U/L Total Protein (6.5-8.0) g/dL Albumin (3.5-5.0) g/dL Urine Color Yellow Urine Appearance Clear Urine pH 7.0 (5.0-9.0) Ur Specific [place] 1.010 (1.005-1.025) Urine Protein Negative (Neg-Trace) mg/dL Urine Glucose (UA) Negative (Negative) mg/dL Urine Ketones Negative (Negative) mg/dL Urine Blood Negative (Negative) Urine Nitrite Negative (Negative) Ur Leukocyte Esterase Negative (Negative) Urine Opiates Screen (Not Detect) Urine Fentanyl Screen (Not Detect) Ur Barbiturates Screen (Not Detect) Ur Phencyclidine Scrn (Not Detect) Ur Amphetamines Screen (Not Detect) U Benzodiazepines Scrn (Not Detect) Urine Cocaine Screen (Not Detect) U Marijuana (THC) Screen (Not Detect) Discharge Plan Discharge Clinical Impression: New onset seizure Patient Disposition: Xfer Psychiatric Hosp Instructions: New-Onset Seizure in Adults (ED) Additional Instructions: Possibly you had a seizure it is not sure whether is epileptic or not Continue your other medications and follow up with neurologist Continue gabapentin Prescriptions: No Action baclofen 10 mg Tablet 10 mg PO BID cholecalciferol (vitamin D3) 25 mcg (1,000 unit) Tablet 25 mcg PO DAILY losartan 50 mg Tablet 50 mg PO DAILY nicotine [Nicoderm] 14 mg/24 hr Patch 24 Hour 1 patch TRANSDERMAL DAILY diphenhydramine HCl [Benadryl] 50 mg Capsule 50 mg PO BEDTIME verapamil 360 mg Capsule,Ext Rel. Pellets 24 Hr 360 mg PO DAILY valacyclovir 1 gram Tablet 1,000 mg PO DAILY naproxen 250 mg Tablet 250 mg PO BID quetiapine 100 mg Tablet 100 mg PO BID@1300,1700 quetiapine [Seroquel] 100 mg Tablet 200 mg PO BEDTIME amitriptyline 50 mg Tablet 50 mg PO BEDTIME fenofibrate micronized 134 mg Capsule 134 mg PO BEDTIME propranolol 10 mg Tablet 10 mg PO TID lidocaine [Lidoderm] 5 % Adhesive Patch,Medicated 1 patch TOPICAL DAILY Rx Instructions: leave on most painful area for up to 12 hrs gabapentin 300 mg Capsule 300 mg PO TID furosemide 20 mg Tablet 20 mg PO DAILY lactulose 20 gram/30 mL Solution 20 g PO TID
[2022-03-31 00:25] VITALS: BP 127/85; PULSE 94; RESP 16; O2SAT 95
[2022-03-31 00:33] LABS: MANUAL DIFF FLAG NO
[2022-03-31 00:34] LABS: Basophils Absolute Auto 0.1 X10*3/uL (0.0-0.2); Basophils Percent Auto 1.2 % (0-2); Eosinophils Absolute Auto 0.3 X10*3/uL (0.0-0.4); Eosinophils Percent Auto 3.2 % (0-4); Hematocrit 33.3 % (37.0-47.0); Hemoglobin 11.3 g/dl (12.0-16.0); Imm Gran Abs Auto 0.06 X10*3/uL (0.00-0.03); Imm Gran Pct Auto 0.6 % (0.0-0.4); Lymphocytes Absolute Auto 2.3 X10*3/uL (1.2-4.9); Lymphocytes Percent Auto 24.1 % (20-40); Mean Corpuscular HGB Conc 33.9 g/dl (31.0-35.0); Mean Corpuscular Hemoglobin 31.6 pg (27.0-33.0); Mean Platelet Volume 9.6 fL (9.4-12.3); Monocytes Absolute Auto 1.2 X10*3/uL (0.1-1.2); Monocytes Percent Auto 11.9 % (2-11); Neutrophils Absolute Auto 5.7 x10*3/uL (2.0-8.3); Platelet Count 292 X10*3/uL (160-400); Red Blood Count 3.58 X10*6/uL (4.20-5.50); Red Cell Distribution Width 12.1 % (11.0-16.0); White Blood Count 9.7 X10*3/uL (4.8-10.8)
[2022-03-31 00:41] LABS: Appearance Urine Clear; Color Urine Yellow; Glucose Urine UA Negative (Negative); Leukocyte Esterase Urine Negative (Negative); Nitrite Urine Negative (Negative); Urine Blood Negative (Negative); Urine Ketones Negative (Negative); Urine Protein Negative (Neg-Trace)
[2022-03-31 00:54] LABS: Amphetamine Screen Urine Not Detected (Not Detect); Barbiturates, Urine Not Detected (Not Detect); Benzodiazepines Screen Urine POSITIVE (Not Detect); Cannabinoid Screen Urine POSITIVE (Not Detect); Cocaine Screen Urine POSITIVE (Not Detect); Fentanyl, urine Not Detected (Not Detect); Opiate Screen Urine Not Detected (Not Detect); Phencyclidine Screen Urine Not Detected (Not Detect)
[2022-03-31 01:00] LABS: Alanine Aminotransferase 13 U/L (0-31); Alkaline Phosphatase 69 U/L (39-117); Anion Gap 13 (12-20); Aspartate Amino Transferase 16 U/L (5-31); Bilirubin Total 0.2 mg/dL (0.0-1.0); Blood Urea Nitrogen 9 mg/dL (9-16); Calcium 9.2 mg/dL (8.4-10.2); Carbon Dioxide 24 mmol/L (22-29); Chloride 103 mmol/L (96-108); Creatinine Clr Calc Pharmacy 89.6; Estimated Glomerular Filt Rate > 60; Glucose Random 94 mg/dL (60-115); Potassium 4.1 mmol/L (3.3-5.1); Sodium 136 mmol/L (135-145); Total Protein 6.4 g/dL (6.5-8.0)
[2022-03-31] MEDS: LORazepam 1 MG TABLET PO (01:45)
--- NOTE | 2022-03-31 01:46 | PC.NURSE ---
Pt declined taking ibuprofen pain med r/t she reports causing abdominal discomfort and vomiting. Dr. Pham aware.
--- NOTE | 2022-03-31 01:56 | PC.NURSE ---
Called report to [facility] spoke to BRYAN Cedillo with update of CT scan results, lab results and Plan pt to rtn to [facility].
--- NOTE | 2022-03-31 02:09 | MHC.EDTECH ---
CINDY LAFLEUR HERE TO RETURN PT TO [facility] @ THIS TIME
== END 2022-03-31 03:17 ==
PROVIDERS: Emergency Provider Internal Medicine
DX: R56.9 Unspecified convulsions (principal); F14.10 Cocaine abuse, uncomplicated; F41.9 Anxiety disorder, unspecified; Z79.899 Other long term (current) drug therapy
CPT/HCPCS: 36415; 70450; 80053; 80307; 81003; 85025; 99285